=== PATIENT | male | born 1950 | race Two or more races ===

== ENCOUNTER 2019-04-10 22:39 | Emergency (ER) | payer OTHER ==
[~2019-04-10] VITALS: Ht 172.7 cm; Wt 78.9 kg
[~2019-04-10 22:39] MED LIST: AMLO5TAB15 PO; ATEN-60 PO; ATOR20TA50 PO; HYDR25TA4 PO; LISI40TA PO; RANITAB32 PO; TAMS0.4C36 PO
[2019-04-10] MEDS ORDERED: SODIUM CHLORIDE 0.9% 1,000 ML IV ONE (23:15)
[2019-04-10] MEDS ORDERED: ONDANSETRON HCL 4 MG/2 ML VIAL IV ONE (23:15)
[2019-04-10 23:32] LABS: Basophils # (auto) 0.1 uL; Basophils % (auto) 0.4 % (0.0-2.0); Eosinophils # (auto) 0.2 uL; Eosinophils % (auto) 1.4 % (0.0-7.0); Hematocrit 46.6 % (41.0-53.0); Hemoglobin 15.8 g/dL (13.5-17.5); Lymphocytes # (auto) 2.3 uL; Lymphocytes % (auto) 14.6 % (10.0-50.0); Mean Corpuscular Hemoglobin 31.3 pg (28.0-32.0); Mean Corpuscular Hgb Conc. 33.8 g/dL (32.0-36.0); Mean Corpuscular Volume 92.4 fL (80.0-100.0); Monocytes # (auto) 0.8 uL; Monocytes % (auto) 5.3 % (0.0-12.0); Neutrophils # (auto) 12.4 uL; Neutrophils % (auto) 78.3 % (37.0-80.0); Platelet Count (auto) 128 10^3/uL (140-450); Red Blood Cells 5.04 10^6/uL (4.5-5.90); Red Cell Distribution Width 14.9 % (11.8-14.3); White Blood Cell 15.8 10^3/uL (4.4-10.8)
[2019-04-10 23:44] LABS: Amylase 72 U/L (25-115); Lipase 186 U/L (73-393)
[2019-04-10 23:47] LABS: Albumin 4.3 g/dL (3.4-5.0); Anion Gap 10 (5-15); Blood Urea Nitrogen 22 mg/dL (7-18); Calcium 9.2 mg/dL (8.5-10.1); Carbon Dioxide 28 mmol/L (21-32); Chloride 102 mmol/L (98-107); Glucose 91 mg/dL (74-106); Potassium 3.4 mmol/L (3.5-5.1); Sodium 140 mmol/L (136-145)
[2019-04-10 23:49] LABS: Alanine Aminotransferase 55 U/L (16-61); Aspartate Aminotransferase 37 U/L (15-37); BUN/Creatinine Ratio 17.9; GFR African American 75 mL/min; GFR Non-African American 62 mL/min
[2019-04-10 23:50] LABS: Lactic Acid w/Reflex 4.1 mmol/L (0.4-2.0)
[2019-04-10 23:53] LABS: Alkaline Phosphatase 105 U/L (45-117); Bilirubin, Total 0.4 mg/dL (0.2-1.0); Total Protein 8.9 g/dL (6.4-8.2)
[2019-04-10 23:57] LABS: INR 7.69 (0.9-1.15)
[2019-04-11] MEDS ORDERED: SODIUM CHLORIDE 0.9% 2,350 ML IV ONE
[2019-04-11] MEDS ORDERED: PIPERACILLIN-TAZOB 3.375GM 100 ML IV ONE (00:15)
[2019-04-11 01:07] LABS: Urine Bacteria FEW /hpf (None Seen); Urine Blood TRACE /uL (Negative); Urine Hyaline Cast FEW /lpf (0 - 2); Urine Specific Gravity 1.017 (1.001-1.035); Urine WBC <1 /hpf (0 - 3)
[2019-04-11] MEDS ORDERED: VANCOMYCIN 1GM/250ML 250 ML IV ONE (01:15)
[2019-04-11 03:00] VITALS: BP 126/66
== END 2019-04-11 04:03 | disposition home or self-care (01) ==
LOC: EDBD 22:39 → ER 22:42
DX: K29.00 Acute gastritis without bleeding (principal); D72.829 Elevated white blood cell count, unspecified; R11.2 Nausea with vomiting, unspecified; D68.9 Coagulation defect, unspecified; D69.6 Thrombocytopenia, unspecified; E11.9 Type 2 diabetes mellitus without complications; I10 Essential (primary) hypertension; I25.2 Old myocardial infarction; Z79.899 Other long term (current) drug therapy
CPT/HCPCS: 36415; 51701; 71045; 74176; 80053; 81001; 82150; 83605; 83690; 84484; 85025; 85610; 85730; 87040; 93005; 94761; 96361; 96365; 96366; 96368; 96375; 99284; J2405; J2543; J3370; J7030; J7050

== ENCOUNTER → 2019-10-03 | Emergency (ER) | payer OTHER ==
[~2019-10-03] VITALS: Ht 182.9 cm; Wt 99.8 kg
[~2019-10-03] MED LIST changes: +ONDANSETRON HCL 4 MG/2 ML VIAL IV ONE
[2019-10-03 02:02] LABS: Basophils # (auto) 0.1 10 ^3/uL (0-0.2); Basophils % (auto) 0.4 % (0.0-2.0); Eosinophils # (auto) 0.1 10 ^3/uL (0-0.8); Hematocrit 49.5 % (41.0-53.0); Hemoglobin 16.3 g/dL (13.5-17.5); Lymphocytes % (auto) 13.5 % (10.0-50.0); Mean Corpuscular Hemoglobin 30.1 pg (28.0-32.0); Mean Corpuscular Hgb Conc. 32.9 g/dL (32.0-36.0); Mean Corpuscular Volume 91.4 fL (80.0-100.0); Monocytes % (auto) 6.7 % (0.0-12.0); Neutrophils # (auto) 11.8 10 ^3/uL (1.6-8.6); Neutrophils % (auto) 78.4 % (37.0-80.0); Nucleated Red Blood Cells % 0.2 %; Platelet Count (auto) 70 10^3/uL (140-450); Red Blood Cells 5.41 10^6/uL (4.5-5.90); Red Cell Distribution Width 14.8 % (11.8-14.3)
[2019-10-03 02:19] LABS: Alanine Aminotransferase 56 U/L (16-61); Albumin 3.8 g/dL (3.4-5.0); Anion Gap 5 (5-15); Aspartate Aminotransferase 31 U/L (15-37); BUN/Creatinine Ratio 21.3; Blood Urea Nitrogen 26 mg/dL (7-18); Calcium 9.4 mg/dL (8.5-10.1); Carbon Dioxide 30 mmol/L (21-32); Chloride 100 mmol/L (98-107); GFR African American 76 mL/min; GFR Non-African American 62 mL/min; Glucose 158 mg/dL (74-106); Potassium 3.7 mmol/L (3.5-5.1); Sodium 135 mmol/L (136-145)
[2019-10-03 02:24] LABS: Alkaline Phosphatase 94 U/L (45-117); Bilirubin, Total 0.5 mg/dL (0.2-1.0); Total Protein 8.1 g/dL (6.4-8.2)
[2019-10-03 04:07] LABS: Urine Bacteria NONE SEEN /hpf (None Seen); Urine Blood TRACE /uL (Negative); Urine Specific Gravity 1.017 (1.001-1.035); Urine WBC <1 /hpf (0 - 3)
[2019-10-03 05:00] VITALS: BP 151/76
== END | disposition home or self-care (01) ==
LOC: EDUNIT# 00:54 → EDBD 01:10 → ER 01:11
DX: E11.649 Type 2 diabetes mellitus with hypoglycemia without coma (principal); I10 Essential (primary) hypertension; I25.2 Old myocardial infarction; Z79.4 Long term (current) use of insulin
CPT/HCPCS: 36415; 71045; 80053; 81001; 82962; 84484; 85025; 93005; 96374; 99285; J2405

== ENCOUNTER 2019-11-27 11:58 | Inpatient (IN) | payer OTHER ==
[~2019-11-27] VITALS: Ht 167.6 cm; Wt 78.8 kg
[~2019-11-27 11:58] MED LIST changes: -ONDANSETRON HCL 4 MG/2 ML VIAL IV ONE
[2019-11-27] MEDS ORDERED: SODIUM CHLORIDE 0.9% 1,000 ML IV ONE (12:06)
[2019-11-27] MEDS ORDERED: SODIUM CHLORIDE 0.9% 1,000 ML IVB ONE (12:06)
[2019-11-27] MEDS ORDERED: ONDANSETRON HCL 4 MG/2 ML VIAL IV ONE (12:15)
[2019-11-27] MEDS ORDERED: MORPHINE SULFATE 4 MG/ML SYR/VIAL IV ONE (12:15)
[2019-11-27] MEDS ORDERED: ACETAMINOPHEN 650 mg PER 20 mL UD PO ONE (12:30)
[2019-11-27 13:09] LABS: Basophils # (auto) 0 10 ^3/uL (0-0.2); Basophils % (auto) 0.3 % (0.0-2.0); Eosinophils # (auto) 0.1 10 ^3/uL (0-0.8); Eosinophils % (auto) 0.5 % (0.0-7.0); Hematocrit 48.4 % (41.0-53.0); Hemoglobin 15.9 g/dL (13.5-17.5); Lymphocytes # (auto) 0.5 10 ^3/uL (0.4-5.4); Lymphocytes % (auto) 3.2 % (10.0-50.0); Mean Corpuscular Hemoglobin 30.7 pg (28.0-32.0); Mean Corpuscular Hgb Conc. 32.8 g/dL (32.0-36.0); Mean Corpuscular Volume 93.5 fL (80.0-100.0); Monocytes # (auto) 0.5 10 ^3/uL (0-1.3); Monocytes % (auto) 3.4 % (0.0-12.0); Neutrophils # (auto) 13.3 10 ^3/uL (1.6-8.6); Neutrophils % (auto) 92.6 % (37.0-80.0); Nucleated Red Blood Cells % 0.1 %; Platelet Count (auto) 84 10^3/uL (140-450); Red Blood Cells 5.18 10^6/uL (4.5-5.90); Red Cell Distribution Width 15.2 % (11.8-14.3); White Blood Cell 14.4 10^3/uL (4.4-10.8)
[2019-11-27 13:26] LABS: Albumin 3.3 g/dL (3.4-5.0); BUN/Creatinine Ratio 29.3; Calcium 8.5 mg/dL (8.5-10.1); Potassium 4.3 mmol/L (3.5-5.1)
[2019-11-27 13:30] LABS: Bilirubin, Total 1.2 mg/dL (0.2-1.0); Total Protein 7.2 g/dL (6.4-8.2)
[2019-11-27] MEDS ORDERED: cefTRIAXone 1GM/50ML D5W 50 ML IV ONE (14:30)
[2019-11-27] MEDS ORDERED: hydrALAZINE HCL 20 MG/ML VL IV PRN (15:00)
[2019-11-27] MEDS ORDERED: FUROSEMIDE 40 MG/4 ML VIAL IV ONE (15:00)
[2019-11-27] MEDS ORDERED: LISINOPRIL 20 MG TAB PO ONE (15:00)
[2019-11-27] MEDS ORDERED: ALUM & MAG HYDROX-SIMETH LIQ(MAALOX) 30 ML PO PRN (15:15)
[2019-11-27] MEDS ORDERED: ONDANSETRON HCL 4 MG/2 ML VIAL IV PRN (15:15)
[2019-11-27] MEDS ORDERED: LORazepam 0.5 MG TAB PO PRN (15:15)
[2019-11-27] MEDS ORDERED: NITROGLYCERIN 0.4 MG SL TAB SL PRN (15:15)
[2019-11-27] MEDS ORDERED: DOCUSATE SOD 100 MG CAP PO PRN (15:15)
[2019-11-27] MEDS ORDERED: MORPHINE SULF INJ 2 MG/ML SYRINGE 1ML IV PRN ×2 (15:15)
[2019-11-27] MEDS ORDERED: HYDROcodone-ACET 5/325MG TAB PO PRN (15:15)
[2019-11-27] MEDS ORDERED: DEXTROSE (50%) 50ML SYRG IV PRN (15:15)
[2019-11-27 15:17] LABS: Urine Bacteria NONE SEEN /hpf (None Seen); Urine Blood 1+ /uL (Negative); Urine Specific Gravity 1.017 (1.001-1.035); Urine WBC <1 /hpf (0 - 3)
[2019-11-27 15:30] LABS: Alcohol, Urine < 3.0 mg/dL (0-10); Amphetamine Screen, Urine NEGATIVE (NEGATIVE); Barbiturate Scree,Urine NEGATIVE (NEGATIVE); Benzodiazephine Screen, Urine NEGATIVE (NEGATIVE); Cannabinoid Screen, Urine NEGATIVE (NEGATIVE); Cocaine Screen, Urine NEGATIVE (NEGATIVE); Opiate Scree,Urine NEGATIVE (NEGATIVE); Phencyclidine Screen, Urine NEGATIVE (NEGATIVE)
[2019-11-27 15:38] LABS: INR 1.22 (0.9-1.15); Partial Thromboplastin Time 27.6 sec (23.64-32.05)
[2019-11-27] MEDS: AMPICILLIN & SULBACTAM SODIUM 3 GM in SODIUM CHL 0.9% 100 ML IV SCH ×2 (16:00→21:08)
[2019-11-27] MEDS: SODIUM CHLORIDE 0.9% 1,000 ML IV SCH (16:08)
[2019-11-27 17:00] VITALS: BP 148/91
--- NOTE | 2019-11-27 17:00 | NUR ---
Telemetry admit from [facility] admitted to Telemetry unit after SBAR received. Patient oriented to BONI CHIU, RN primary RN, unit, room, bed, and unit policies regarding patient care and visiting hours. Patient now on continuous telemetry monitoring, tele box # 19 and telemetry reading on arrival to unit is SR. Patient weighed by bedscale and encouraged to call if they need something. All questions and concerns addressed, patient verbalized understanding.
[2019-11-27 18:00] LABS: Cholesterol 127 mg/dL (< 200)
[2019-11-27] MEDS: ACCU-CHEK COMFORT CURVE STRIP VI SCH (18:00)
[2019-11-27 18:02] LABS: HDL Cholesterol 37 mg/dL (40-59); LDL Cholesterol 83 mg/dL (< 100); Triglycerides 90 mg/dL (< 150)
[2019-11-27] MEDS: TAMSULOSIN HYDROCHLORIDE 0.4 MG CAP PO SCH (18:49)
[2019-11-27] MEDS: FUROSEMIDE 40 MG/4 ML VIAL IV SCH (18:58)
[2019-11-27] MEDS ORDERED: FLUT500M2 INH (19:06)
[2019-11-27] MEDS ORDERED: WARF2.5T PO (19:15)
[2019-11-27] MEDS ORDERED: PANT40TA2 PO (19:15)
[2019-11-27] MEDS ORDERED: SUCR1TAB PO (19:15)
[2019-11-27] MEDS ORDERED: ASPI-404 PO (19:15)
[2019-11-27] MEDS: InsuLIN REG 1unit/0.01ml Soln (100units/ml) SC SCH (19:16)
--- NOTE | 2019-11-27 19:47 | NUR ---
Covid Patient testing negative for covid. Patient transferred to room 233 with EDWARD Vilchis at this time after Report given.
--- NOTE | 2019-11-27 19:49 | NUR ---
Received patient Received patient after receiving report from EDWARD Blackwood. Patient now in room awake and alert with no S/S of distress/SOB or pain. Call light within reach, bed in lowest position x2 side rails, HOB low fowlers Instructed on POC and to call for assist PRN, will continue to monitor for changes Q1hr and PRN.
[2019-11-27] MEDS: IPRATROPIUM BROM 0.5 MG/2.5ML INH SOL NEB SCH ×2 (19:54→22:17)
[2019-11-27 19:56] VITALS: BP 152/76
[2019-11-27] MEDS ORDERED: WARFARIN SODIUM 2 MG TAB PO ONE (20:15)
--- NOTE | 2019-11-27 20:35 | NUR ---
CT postponed Call from radiology, postponed CT scan for tomorrow, unable to do it at this time.
--- NOTE | 2019-11-27 20:40 | NUR ---
Called pharmacy Looked in patient cassette for scheduled one time dose of coumadin, called pharmacy to be sent up.
[2019-11-27 21:30] VITALS: BP 120/67
--- NOTE | 2019-11-27 21:49 | NUR ---
Medication from pharmacy Received medication from pharmacy, will administer.
[2019-11-27] MEDS: FAMOTIDINE 20 MG TAB PO SCH (22:23)
[2019-11-28] MEDS: InsuLIN REG 1unit/0.01ml Soln (100units/ml) SC SCH ×4 (00:16→18:38)
--- NOTE | 2019-11-28 00:16 | NUR ---
Elevated BS, Hospitalist paged Scheduled accu check reading of 402, rechecked in different finger and different hand per protocol with a reading of 406. Administered 15 units of insulin and called Hospitalist to inform of critical reading per protocol. No new orders at this time. Will continue to monitor.
[2019-11-28] MEDS: ACCU-CHEK COMFORT CURVE STRIP VI SCH ×4 (00:18→18:28)
--- NOTE | 2019-11-28 01:58 | NUR ---
Lab results Lab results of gram positive cocci in chains. Hospitalist paged.
[2019-11-28] MEDS: IPRATROPIUM BROM 0.5 MG/2.5ML INH SOL NEB SCH ×5 (02:17→18:06)
--- NOTE | 2019-11-28 02:26 | NUR ---
Hospitalist Call back from Hospitalist, informed him of Gram positive cocci in chains and patient currently on ampicilin. New order received, read back, and verified of Vancomycin per pharmacy protocol. Will continue to monitor.
[2019-11-28] MEDS: AMPICILLIN & SULBACTAM SODIUM 3 GM in SODIUM CHL 0.9% 100 ML IV SCH ×2 (02:46→11:01)
[2019-11-28 04:30] VITALS: BP 123/64
[2019-11-28] MEDS: FUROSEMIDE 40 MG/4 ML VIAL IV SCH ×2 (05:38→18:27)
[2019-11-28 06:11] LABS: Basophils # (auto) 0 10 ^3/uL (0-0.2); Eosinophils # (auto) 0 10 ^3/uL (0-0.8); Eosinophils % (auto) 0.2 % (0.0-7.0); Lymphocytes # (auto) 0.5 10 ^3/uL (0.4-5.4)
[2019-11-28 06:13] LABS: Basophils % (auto) 0.4 % (0.0-2.0); Hematocrit 46.3 % (41.0-53.0); Hemoglobin 15.3 g/dL (13.5-17.5); Lymphocytes % (auto) 5.7 % (10.0-50.0); Mean Corpuscular Hemoglobin 31.2 pg (28.0-32.0); Mean Corpuscular Hgb Conc. 33.2 g/dL (32.0-36.0); Monocytes # (auto) 0.6 10 ^3/uL (0-1.3); Monocytes % (auto) 5.8 % (0.0-12.0); Neutrophils # (auto) 8.5 10 ^3/uL (1.6-8.6); Neutrophils % (auto) 87.9 % (37.0-80.0); Nucleated Red Blood Cells % 0.1 %; Platelet Count (auto) 63 10^3/uL (140-450); Red Blood Cells 4.92 10^6/uL (4.5-5.90); Red Cell Distribution Width 15.4 % (11.8-14.3); White Blood Cell 9.6 10^3/uL (4.4-10.8)
[2019-11-28 06:18] LABS: INR 1.35 (0.9-1.15); Partial Thromboplastin Time 27.3 sec (23.64-32.05)
[2019-11-28 06:22] LABS: Potassium 3.9 mmol/L (3.5-5.1)
[2019-11-28 06:43] LABS: Albumin 2.9 g/dL (3.4-5.0); BUN/Creatinine Ratio 25.9; Calcium 8.2 mg/dL (8.5-10.1); Magnesium 2.1 mg/dL (1.6-2.6); Phosphorus 2.8 mg/dL (2.5-4.90); Total Protein 6.5 g/dL (6.4-8.2)
[2019-11-28] MEDS: SODIUM CHLORIDE 0.9% 1,000 ML IV SCH (07:42)
--- NOTE | 2019-11-28 08:00 | NUR ---
OPENING NOTE ASSUMED CARE OF PATIENT. NO S/S OF DISTRESS, SOB, OR PAIN. PT DANGLING FEET ON SIDE OF BED EATING BREAKFAST. POC DISCUSSED WITH PT. ALL NEEDS MET AT THIS TIME. BED IN LOWEST POSITION, CALL LIGHT WITHIN REACH. WILL CONTINUE TO MONITOR.
[2019-11-28 09:00] VITALS: BP 112/82
--- NOTE | 2019-11-28 09:30 | NUR ---
patient taken down to radiology
[2019-11-28] MEDS ORDERED: LISINOPRIL 20 MG TAB PO SCH (10:00)
[2019-11-28] MEDS ORDERED: ASPirin 81 mg TAB PO SCH (10:00)
[2019-11-28] MEDS ORDERED: METOPROLOL SUCCINATE XL 50 MG TAB PO SCH (10:00)
[2019-11-28] MEDS ORDERED: ATORVASTATIN 20 MG TAB PO SCH (10:00)
--- NOTE | 2019-11-28 10:15 | NUR ---
patient back from radiology
[2019-11-28] MEDS: FAMOTIDINE 20 MG TAB PO SCH (10:56)
--- NOTE | 2019-11-28 12:06 | NUR ---
Dr. Robert Kaufman at bedside Discussing plan of care with patient and this RN. New orders received. patient to transfer to [facility]. Patient verbalized understanding. Bed in low and locked position, call light within reach. Will continue to monitor Q1 hour and PRN.
[2019-11-28] MEDS ORDERED: VANCOMYCIN 1GM/250ML 250 ML IV ONE (12:15)
[2019-11-28] MEDS ORDERED: VANCOMYCIN PER PHARMACY 0 MG IV SCH (12:15)
[2019-11-28 13:00] VITALS: BP 127/67
--- NOTE | 2019-11-28 14:17 | NUR ---
1415 11/28/19 I faxed transfer order and Notice Regarding Post Stabilization to [facility]-document scanned into [employer]. I faxed today's MD progress notes, transfer summary, xrays, labs, vitals and medication list to [facility].
--- NOTE | 2019-11-28 15:39 | NUR ---
1530 11/28/19 I spoke with [facility] Powder Operator Annalisa regarding the status of the transfer. I let her know that through an jewel bearing facer (patient is amharic speaking only), patient is agreeable to be transferred to [facility]. Per Annalisa she will work on the transfer and will call the nurse's station when a bed becomes available.
[2019-11-28 17:00] VITALS: BP 126/71
[2019-11-28] MEDS ORDERED: PIPERACILLIN-TAZOB 3.375GM 100 ML IV SCH (18:00)
[2019-11-28] MEDS ORDERED: WARFARIN SODIUM 2.5 MG TAB PO ONE (18:15)
--- NOTE | 2019-11-28 18:15 | NUR ---
IV Removed IV removed from left forearm, with clean sterile technique, catheter fully intact. Pressure dressing applied to site. Patient tolerated well. Will continue to monitor Q1 hour and PRN.
[2019-11-28] MEDS: TAMSULOSIN HYDROCHLORIDE 0.4 MG CAP PO SCH (18:27)
--- NOTE | 2019-11-28 19:05 | NUR ---
Closing Note Report given to maintenance supervisor 2nd shift RN. No signs or symptoms of distress noted at this time.
--- NOTE | 2019-11-28 19:20 | NUR ---
Opening Shift Note Assumed care of patient after receiving report from day RN. Patient awake and alert with no S/S of distress/SOB or pain. Call light within reach, bed in lowest position x2 side rails, HOB >30. Instructed on POC and to call for assist PRN, will continue to monitor for changes Q1hr and PRN.
--- NOTE | 2019-11-28 20:07 | NUR ---
Spoke with Kaykay from [facility] at [phone]. Patient to be transfer by [facility] at 21:30 to [facility] to bed 409. Accepting EDWARD Saini [phone], accepting MD Dr. Cheek.
[2019-11-28 20:45] VITALS: BP 114/71
[2019-11-28 21:37] VITALS: BP 123/61
--- NOTE | 2019-11-28 21:47 | NUR ---
Report given to EDWARD Saini at [facility].
--- NOTE | 2019-11-28 22:06 | NUR ---
Patient off unit, transferred by [facility]. ID band removed, Tele box cleaned and sent to monitor techs.
[2019-11-29] MEDS ORDERED: VANCOMYCIN 1GM/250ML 250 ML IV SCH (08:00)
== END 2019-11-28 22:06 | disposition short-term general hospital (02) | DRG 872 ==
LOC: EDBD 11:58 → EDSEX 11:58 → ER 11:58 → TELE-EAST 11:59
PROVIDERS: ADMIT Hospitalist; ATTEND Physician Assistant
DX: A40.9 Streptococcal sepsis, unspecified (principal); E44.0 Moderate protein-calorie malnutrition; I50.82 Biventricular heart failure; E86.0 Dehydration; E11.21 Type 2 diabetes mellitus with diabetic nephropathy; D69.6 Thrombocytopenia, unspecified; I11.0 Hypertensive heart disease with heart failure; I48.91 Unspecified atrial fibrillation; Z20.828 Contact with and (suspected) exposure to other viral communicable diseases; E78.5 Hyperlipidemia, unspecified; N40.0 Benign prostatic hyperplasia without lower urinary tract symptoms; E78.00 Pure hypercholesterolemia, unspecified; I25.10 Atherosclerotic heart disease of native coronary artery without angina pectoris; I25.5 Ischemic cardiomyopathy; I25.2 Old myocardial infarction; Z95.2 Presence of prosthetic heart valve; J44.9 Chronic obstructive pulmonary disease, unspecified; Z68.27 Body mass index [BMI] 27.0-27.9, adult
CPT/HCPCS: 36415; 71045; 74176; 80053; 80061; 80307; 81001; 82728; 82962; 83036; 83605; 83615; 83690; 83735; 84100; 84484; 85025; 85610; 85730; 87040; 87077; 87086; 87186; 87804; 87880; 93005; 94640; 96361; 96365; 96375; 99291; G0378; J0696; J1815; J2405; J2543

== ENCOUNTER 2020-09-11 22:33 | Emergency (ER) | payer OTHER, MEDICAID ==
[~2020-09-11] VITALS: Ht 167.6 cm; Wt 81.6 kg
[~2020-09-11 22:33] MED LIST changes: +AMLO-489 PO; -AMLO5TAB15 PO; +ASPI-543 PO; +FLUT500M2 INH; -LISI40TA PO; +LISI40TA11 PO; +PANT40TA2 PO; +SUCR1TAB PO; +WARF2.5T PO
[2020-09-11] MEDS ORDERED: IPRATROPIUM BROM 0.5 MG/2.5ML INH SOL ONE (23:13)
[2020-09-11] MEDS ORDERED: ALBUTEROL SULF 2.5 MG/0.5ML(0.5%) NEB SOLN ONE (23:13)
[2020-09-11] MEDS ORDERED: SODIUM CHLORIDE 0.9% 500 ML IV ONE (23:15)
[2020-09-11] MEDS ORDERED: InsuLIN REG 1unit/0.01ml Soln (100units/ml) IV ONE (23:15)
[2020-09-11 23:28] LABS: Basophils # (auto) 0 10 ^3/uL (0-0.2); Eosinophils # (auto) 0 10 ^3/uL (0-0.8); Hematocrit 37.9 % (41.0-53.0); Hemoglobin 12.2 g/dL (13.5-17.5); Lymphocytes # (auto) 0.6 10 ^3/uL (0.4-5.4); Lymphocytes % (auto) 4.3 % (10.0-50.0); Mean Corpuscular Hemoglobin 29.9 pg (28.0-32.0); Mean Corpuscular Hgb Conc. 32.2 g/dL (32.0-36.0); Monocytes # (auto) 0.9 10 ^3/uL (0-1.3); Monocytes % (auto) 6.2 % (0.0-12.0); Neutrophils # (auto) 12.9 10 ^3/uL (1.6-8.6); Neutrophils % (auto) 89.5 % (37.0-80.0); Nucleated Red Blood Cells % 0.1 %; Platelet Count (auto) 112 10^3/uL (140-450); Red Blood Cells 4.08 10^6/uL (4.5-5.90); Red Cell Distribution Width 18.2 % (11.8-14.3); White Blood Cell 14.4 10^3/uL (4.4-10.8)
[2020-09-11] MEDS ORDERED: IPRATROPIUM BROM 0.5 MG/2.5ML INH SOL NEB ONE (23:30)
[2020-09-11] MEDS ORDERED: ALBUTEROL SULF 2.5 MG/0.5ML(0.5%) NEB SOLN NEB ONE (23:30)
[2020-09-11 23:49] LABS: INR 1.44 (0.9-1.15); Partial Thromboplastin Time 39.4 sec (23.0-31.2)
[2020-09-11 23:52] LABS: Albumin 3.4 g/dL (3.4-5.0); Calcium 7.7 mg/dL (8.5-10.1); Potassium 4.4 mmol/L (3.5-5.1)
[2020-09-11 23:54] LABS: Bilirubin, Total 0.7 mg/dL (0.2-1.0); Total Protein 6.9 g/dL (6.4-8.2)
[2020-09-11 23:55] LABS: Lactic Acid w/Reflex 2.1 mmol/L (0.4-2.0)
[2020-09-11 23:57] LABS: BUN/Creatinine Ratio 31.4
[2020-09-12] MEDS ORDERED: ALBUTEROL SULF 2.5 MG/0.5ML(0.5%) NEB SOLN NEB ONE (01:15)
[2020-09-12 01:52] LABS: Urine Bacteria NONE SEEN /hpf (None Seen); Urine Blood Negative /uL (Negative); Urine Specific Gravity 1.023 (1.001-1.035); Urine WBC <1 /hpf (0 - 3)
[2020-09-12] MEDS ORDERED: InsuLIN REG 1unit/0.01ml Soln (100units/ml) SC ONE (02:45)
[2020-09-12 04:53] VITALS: BP 150/75
== END 2020-09-12 05:10 | disposition home or self-care (01) ==
LOC: EDBD 22:33 → ER 22:33
DX: E11.65 Type 2 diabetes mellitus with hyperglycemia (principal); I11.0 Hypertensive heart disease with heart failure; I50.9 Heart failure, unspecified; Z79.899 Other long term (current) drug therapy; Z20.822 Contact with and (suspected) exposure to COVID-19
CPT/HCPCS: 36415; 36600; 71045; 80053; 81001; 82010; 82805; 82962; 83605; 83880; 85025; 85610; 85730; 87040; 87426; 94640; 96361; 96372; 96374; 99285; C9803; J1815; J7644; U0003

== ENCOUNTER 2020-11-07 01:57 | Emergency (ER) | payer OTHER, MEDICAID ==
[~2020-11-07] VITALS: Ht 167.6 cm; Wt 77.1 kg
[~2020-11-07 01:57] MED LIST changes: +ALBU108A5 INH; +AMLO-496 PO; +DABI150C5 PO; +FURO40TA4 PO; +INSREG3; +INSUINJ2 SC; +IPR002IS NEB; +MONT10TA42 PO; +PANT40T PO; +[UNRECOGNIZED DRUG - CODE] IV
[2020-11-07 02:50] LABS: Basophils # (auto) 0.1 10 ^3/uL (0-0.2); Basophils % (auto) 0.3 % (0.0-2.0); Eosinophils # (auto) 0.2 10 ^3/uL (0-0.8); Eosinophils % (auto) 1.3 % (0.0-7.0); Hematocrit 36.9 % (41.0-53.0); Hemoglobin 12.1 g/dL (13.5-17.5); Lymphocytes # (auto) 1.3 10 ^3/uL (0.4-5.4); Lymphocytes % (auto) 7.4 % (10.0-50.0); Mean Corpuscular Hemoglobin 27.7 pg (28.0-32.0); Mean Corpuscular Hgb Conc. 32.7 g/dL (32.0-36.0); Mean Corpuscular Volume 84.6 fL (80.0-100.0); Monocytes # (auto) 0.9 10 ^3/uL (0-1.3); Monocytes % (auto) 5.3 % (0.0-12.0); Neutrophils # (auto) 14.9 10 ^3/uL (1.6-8.6); Neutrophils % (auto) 85.7 % (37.0-80.0); Nucleated Red Blood Cells % 0.1 %; Platelet Count (auto) 141 10^3/uL (140-450); Red Blood Cells 4.36 10^6/uL (4.5-5.90); Red Cell Distribution Width 17.5 % (11.8-14.3); White Blood Cell 17.4 10^3/uL (4.4-10.8)
[2020-11-07 03:07] LABS: Albumin 3.4 g/dL (3.4-5.0); BUN/Creatinine Ratio 29.9; Calcium 8.5 mg/dL (8.5-10.1); INR 1.34 (0.9-1.15); Magnesium 1.7 mg/dL (1.6-2.6); Partial Thromboplastin Time 36.1 sec (23.0-31.2); Potassium 3.4 mmol/L (3.5-5.1)
[2020-11-07 03:12] LABS: Bilirubin, Total 0.8 mg/dL (0.2-1.0)
[2020-11-07] MEDS ORDERED: SODIUM CHLORIDE 0.9% 500 ML IV ONE (05:30)
[2020-11-07] MEDS ORDERED: AZITHROMYCIN 500MG/ 250ML 250 ML IV ONE (05:45)
[2020-11-07] MEDS ORDERED: ASPirin 325 MG TAB PO ONE (05:45)
[2020-11-07] MEDS ORDERED: cefTRIAXone 1GM/50ML D5W 50 ML IV ONE (05:45)
[2020-11-07 11:10] VITALS: BP 100/79
== END 2020-11-07 11:36 | disposition short-term general hospital (02) ==
LOC: ER 01:57 → EDBD 01:57 → EDSEX 01:57 → ER 11:36
DX: J18.9 Pneumonia, unspecified organism (principal); E87.2 Acidosis; I10 Essential (primary) hypertension; E11.9 Type 2 diabetes mellitus without complications; I25.2 Old myocardial infarction; I25.10 Atherosclerotic heart disease of native coronary artery without angina pectoris; J45.909 Unspecified asthma, uncomplicated; Z20.822 Contact with and (suspected) exposure to COVID-19
CPT/HCPCS: 36415; 71045; 80053; 83605; 83735; 83880; 84484; 85025; 85379; 85610; 85730; 87040; 87426; 93005; 96361; 96365; 96366; 96367; 99285; J0456; J0696; J7030; J7040

== ENCOUNTER 2020-11-11 17:38 | Emergency (ER) | payer MEDICAID, OTHER ==
[~2020-11-11] VITALS: Ht 172.7 cm; Wt 77.1 kg
[2020-11-11 19:27] LABS: Basophils # (auto) 0 10 ^3/uL (0-0.2); Basophils % (auto) 0.3 % (0.0-2.0); Eosinophils # (auto) 0.2 10 ^3/uL (0-0.8); Eosinophils % (auto) 1.3 % (0.0-7.0); Hematocrit 31.8 % (41.0-53.0); Hemoglobin 10.6 g/dL (13.5-17.5); Lymphocytes # (auto) 1.3 10 ^3/uL (0.4-5.4); Lymphocytes % (auto) 10.5 % (10.0-50.0); Mean Corpuscular Hemoglobin 28.3 pg (28.0-32.0); Mean Corpuscular Hgb Conc. 33.3 g/dL (32.0-36.0); Mean Corpuscular Volume 84.9 fL (80.0-100.0); Monocytes # (auto) 0.8 10 ^3/uL (0-1.3); Monocytes % (auto) 6.4 % (0.0-12.0); Neutrophils % (auto) 81.5 % (37.0-80.0); Platelet Count (auto) 108 10^3/uL (140-450); Red Blood Cells 3.75 10^6/uL (4.5-5.90); Red Cell Distribution Width 17.2 % (11.8-14.3); White Blood Cell 12.2 10^3/uL (4.4-10.8)
[2020-11-11 19:35] LABS: Albumin 4.1 g/dL (3.4-5.0); Calcium 9.1 mg/dL (8.5-10.1); Magnesium 1.7 mg/dL (1.6-2.6); Potassium 3.9 mmol/L (3.5-5.1)
[2020-11-11 19:37] LABS: BUN/Creatinine Ratio 24.8
[2020-11-11 19:41] LABS: Bilirubin, Total 1.5 mg/dL (0.2-1.0); Total Protein 7.3 g/dL (6.4-8.2)
[2020-11-11] MEDS ORDERED: FUROSEMIDE 100 MG/10ML VIAL IV ONE (20:00)
[2020-11-11] MEDS ORDERED: InsuLIN REG 1unit/0.01ml Soln (100units/ml) IV ONE (20:00)
[2020-11-12 09:48] VITALS: BP 158/65
== END 2020-11-12 10:06 | disposition short-term general hospital (02) ==
LOC: EDBD 17:38 → ER 17:44
DX: I50.23 Acute on chronic systolic (congestive) heart failure (principal); I11.0 Hypertensive heart disease with heart failure; R09.02 Hypoxemia; E11.65 Type 2 diabetes mellitus with hyperglycemia; I10 Essential (primary) hypertension; I25.10 Atherosclerotic heart disease of native coronary artery without angina pectoris; I25.2 Old myocardial infarction; J45.909 Unspecified asthma, uncomplicated; Z79.4 Long term (current) use of insulin; Z79.82 Long term (current) use of aspirin; Z79.01 Long term (current) use of anticoagulants; Z79.899 Other long term (current) drug therapy; Z20.822 Contact with and (suspected) exposure to COVID-19
CPT/HCPCS: 36415; 71045; 80053; 82962; 83735; 83880; 84484; 85025; 87426; 93005; 96374; 96375; 99285; J1815; J1940

== ENCOUNTER 2020-11-22 23:02 | Emergency (ER) | payer OTHER, MEDICAID ==
[~2020-11-22] VITALS: Ht 167.6 cm; Wt 72.6 kg
[~2020-11-22 23:02] MED LIST changes: +MONT-8 PO; -MONT10TA42 PO
[2020-11-23] MEDS ORDERED: ONDANSETRON HCL 4 MG/2 ML VIAL IV ONE (01:00)
[2020-11-23 02:34] LABS: Basophils # (auto) 0 10 ^3/uL (0-0.2); Basophils % (auto) 0.1 % (0.0-2.0); Eosinophils # (auto) 0.2 10 ^3/uL (0-0.8); Eosinophils % (auto) 1.4 % (0.0-7.0); Hematocrit 37.4 % (41.0-53.0); Lymphocytes # (auto) 0.8 10 ^3/uL (0.4-5.4); Lymphocytes % (auto) 5.2 % (10.0-50.0); Mean Corpuscular Hemoglobin 27.1 pg (28.0-32.0); Mean Corpuscular Hgb Conc. 32.1 g/dL (32.0-36.0); Mean Corpuscular Volume 84.5 fL (80.0-100.0); Monocytes # (auto) 0.8 10 ^3/uL (0-1.3); Monocytes % (auto) 5.3 % (0.0-12.0); Neutrophils # (auto) 13.6 10 ^3/uL (1.6-8.6); Red Blood Cells 4.42 10^6/uL (4.5-5.90); White Blood Cell 15.5 10^3/uL (4.4-10.8)
[2020-11-23 02:50] LABS: INR 1.47 (0.9-1.15)
[2020-11-23 02:54] LABS: Albumin 3.5 g/dL (3.4-5.0); BUN/Creatinine Ratio 25.2; Calcium 8.6 mg/dL (8.5-10.1); Magnesium 1.7 mg/dL (1.6-2.6); Potassium 4.4 mmol/L (3.5-5.1)
[2020-11-23 02:59] LABS: Bilirubin, Total 0.9 mg/dL (0.2-1.0); Total Protein 7.2 g/dL (6.4-8.2)
[2020-11-23] MEDS ORDERED: IOHEXOL 300 MG/ML 100ML BOTTLE IJ ONE (03:32)
[2020-11-23 04:00] VITALS: BP 132/72
== END 2020-11-23 06:57 | disposition home or self-care (01) ==
LOC: EDBD 23:02 → ER 23:02
DX: A05.9 Bacterial foodborne intoxication, unspecified (principal); R11.2 Nausea with vomiting, unspecified; I11.0 Hypertensive heart disease with heart failure; I50.9 Heart failure, unspecified; I25.10 Atherosclerotic heart disease of native coronary artery without angina pectoris; J45.909 Unspecified asthma, uncomplicated; I25.2 Old myocardial infarction; E11.9 Type 2 diabetes mellitus without complications; Z79.2 Long term (current) use of antibiotics; Z79.01 Long term (current) use of anticoagulants; Z79.82 Long term (current) use of aspirin; Z79.899 Other long term (current) drug therapy
CPT/HCPCS: 36415; 71045; 74177; 80053; 83605; 83690; 83735; 83880; 84484; 85025; 85610; 93005; 96374; 99285; J2405; Q9967

== ENCOUNTER 2021-07-22 09:17 | Inpatient (IN) | payer OTHER, MEDICAID ==
[~2021-07-22] VITALS: Ht 167.6 cm; Wt 66.0 kg
[2021-07-22] MEDS: DABIGATRAN 75 MG CAP PO SCH (00:28)
[2021-07-22 10:18] LABS: Albumin 2.5 g/dL (3.4-5.0); Calcium 8.7 mg/dL (8.5-10.1); Potassium 3.8 mmol/L (3.5-5.1)
[2021-07-22 10:22] LABS: BUN/Creatinine Ratio 19.2; Bilirubin, Total 1.1 mg/dL (0.2-1.0); Lactic Acid w/Reflex 8.4 mmol/L (0.4-2.0)
[2021-07-22 10:38] LABS: Basophils # (auto) 0.1 10 ^3/uL (0-0.2)
[2021-07-22 10:42] LABS: Basophils % (auto) 0.6 % (0.0-2.0); Eosinophils # (auto) 0.1 10 ^3/uL (0-0.8); Eosinophils % (auto) 0.7 % (0.0-7.0); Hematocrit 27.8 % (41.0-53.0); Hemoglobin 8.6 g/dL (13.5-17.5); Lymphocytes # (auto) 2.3 10 ^3/uL (0.4-5.4); Lymphocytes % (auto) 12.8 % (10.0-50.0); Mean Corpuscular Hemoglobin 24.6 pg (28.0-32.0); Mean Corpuscular Volume 79.5 fL (80.0-100.0); Monocytes # (auto) 0.9 10 ^3/uL (0-1.3); Monocytes % (auto) 4.8 % (0.0-12.0); Neutrophils # (auto) 14.4 10 ^3/uL (1.6-8.6); Neutrophils % (auto) 81.1 % (37.0-80.0); Red Cell Distribution Width 19.2 % (11.8-14.3); White Blood Cell 17.8 10^3/uL (4.4-10.8)
[2021-07-22] MEDS ORDERED: DexAMETHasone SOD PHOS 10MG/1ML VIAL INJ IV ONE (11:00)
[2021-07-22] MEDS ORDERED: ASPirin 81 mg TAB PO ONE (11:00)
[2021-07-22] MEDS ORDERED: FUROSEMIDE 20 MG TAB PO ONE (11:00)
[2021-07-22 12:17] VITALS: BP 150/87
[2021-07-22 14:00] VITALS: BP 161/93
[2021-07-22] MEDS ORDERED: MORPHINE SULFATE INJECTION 2 MG/ML SYRG IV PRN (15:15)
[2021-07-22] MEDS ORDERED: NITROGLYCERIN 0.4 MG SL TAB SL PRN (15:15)
[2021-07-22] MEDS ORDERED: FUROSEMIDE 100 MG/10ML VIAL IV ONE (15:15)
[2021-07-22 15:39] LABS: Urine Bacteria NONE SEEN /hpf (None Seen); Urine Blood TRACE /uL (Negative); Urine Specific Gravity 1.015 (1.001-1.035); Urine WBC <1 /hpf (0 - 3)
[2021-07-22 16:20] VITALS: BP 153/82
[2021-07-22] MEDS: cefTRIAXone 1GM/50ML D5W 50 ML IV SCH (16:31)
[2021-07-22] MEDS ORDERED: AMIODARONE HCL 150 MG in D5W 5% 100 ML IV ONE (16:45)
[2021-07-22 16:49] LABS: INR 1.41 (0.9-1.15); Partial Thromboplastin Time 37.3 sec (23.6-33.0)
[2021-07-22] MEDS ORDERED: AMIODARONE 450mg/250ml AE 250 ML IV SCH (17:00)
[2021-07-22] MEDS ORDERED: LORazepam 2MG/ML-1ML VIAL IV PRN (18:00)
[2021-07-22] MEDS: AZITHROMYCIN 500MG/ 250ML 250 ML IV SCH (18:12)
[2021-07-22 18:40] VITALS: BP 150/93
[2021-07-22 18:41] LABS: Amphetamine Screen, Urine NEGATIVE (NEGATIVE); Barbiturate Scree,Urine NEGATIVE (NEGATIVE); Benzodiazephine Screen, Urine NEGATIVE (NEGATIVE); Cannabinoid Screen, Urine NEGATIVE (NEGATIVE); Cocaine Screen, Urine NEGATIVE (NEGATIVE); Opiate Scree,Urine NEGATIVE (NEGATIVE); Phencyclidine Screen, Urine NEGATIVE (NEGATIVE)
[2021-07-22] MEDS ORDERED: CATHFLO ACTIVASE (ALTEPLASE) 2 MG VIAL IV ONE (18:45)
[2021-07-22] MEDS ORDERED: ALBUTEROL SULF 2.5 MG/0.5ML(0.5%) NEB SOLN ONE (21:29)
[2021-07-22] MEDS ORDERED: ALBUTEROL SULF 2.5 MG/0.5ML(0.5%) NEB SOLN NEB ONE (21:30)
[2021-07-22] MEDS ORDERED: IPRATROPIUM BROM 0.5 MG/2.5ML INH SOL ONE (21:30)
[2021-07-22] MEDS ORDERED: IPRATROPIUM BROM 0.5 MG/2.5ML INH SOL NEB ONE (21:30)
[2021-07-22] MEDS: AMIODARONE 450mg/250ml AE 250 ML IV SCH (23:00)
[2021-07-23] MEDS ORDERED: FUROSEMIDE 40 MG/4 ML VIAL ONE (01:06)
[2021-07-23] MEDS ORDERED: methylPREDNISolone SOD SUCC 125 MG/2 ML VL ONE (01:06)
[2021-07-23] MEDS ORDERED: methylPREDNISolone SOD SUCC 125 MG/2 ML VL IV ONE (01:15)
[2021-07-23] MEDS ORDERED: FUROSEMIDE 40 MG/4 ML VIAL IV ONE (01:15)
[2021-07-23] MEDS ORDERED: LORazepam 2MG/ML-1ML VIAL IV PRN ×2 (02:00→19:15)
[2021-07-23 02:10] VITALS: BP 197/108
[2021-07-23] MEDS ORDERED: levETIRAcetam 500 MG/5ML INJ IV ONE (03:10)
[2021-07-23] MEDS ORDERED: hydrALAZINE HCL 20 MG/ML VL IV PRN ×3 (03:45→15:00)
[2021-07-23] MEDS ORDERED: SODIUM BICARBONATE 8.4 % INJ 50ML VIAL IV ONE (04:00)
[2021-07-23 05:50] VITALS: BP 132/72
[2021-07-23] MEDS ORDERED: methylPREDNISolone SOD SUCC 40 MG/ML VL IV ONE (06:00)
[2021-07-23 06:05] LABS: Basophils # (auto) 0 10 ^3/uL (0-0.2); Eosinophils # (auto) 0 10 ^3/uL (0-0.8); Hemoglobin 7.9 g/dL (13.5-17.5); Lymphocytes # (auto) 0.2 10 ^3/uL (0.4-5.4); Monocytes # (auto) 0.3 10 ^3/uL (0-1.3)
[2021-07-23 06:08] LABS: Hematocrit 25.3 % (41.0-53.0); Lymphocytes % (auto) 1.3 % (10.0-50.0); Mean Corpuscular Hemoglobin 24.7 pg (28.0-32.0); Mean Corpuscular Hgb Conc. 31.3 g/dL (32.0-36.0); Mean Corpuscular Volume 78.7 fL (80.0-100.0); Neutrophils # (auto) 14.9 10 ^3/uL (1.6-8.6); Neutrophils % (auto) 96.7 % (37.0-80.0); Red Blood Cells 3.22 10^6/uL (4.5-5.90); Red Cell Distribution Width 19.8 % (11.8-14.3); White Blood Cell 15.4 10^3/uL (4.4-10.8)
[2021-07-23 06:15] LABS: Albumin 2.3 g/dL (3.4-5.0); Calcium 8.5 mg/dL (8.5-10.1); Potassium 4.2 mmol/L (3.5-5.1)
[2021-07-23 06:19] LABS: Total Protein 6.5 g/dL (6.4-8.2)
[2021-07-23] MEDS: LORazepam 2MG/ML-1ML VIAL IV PRN ×2 (06:42→12:35)
[2021-07-23] MEDS ORDERED: InsuLIN REG 1unit/0.01ml Soln (100units/ml) SC ONE (07:30)
[2021-07-23 08:11] VITALS: BP 135/82
[2021-07-23 10:00] VITALS: BP 124/84
[2021-07-23] MEDS: DABIGATRAN 75 MG CAP PO SCH (10:00)
[2021-07-23] MEDS: TAMSULOSIN HYDROCHLORIDE 0.4 MG CAP PO SCH (10:00)
[2021-07-23] MEDS ORDERED: ASPirin 81 mg TAB PO SCH (10:00)
[2021-07-23] MEDS: ATORVASTATIN 20 MG TAB PO SCH (10:00)
[2021-07-23] MEDS ORDERED: ACCU-CHEK COMFORT CURVE STRIP VI SCH (10:00)
[2021-07-23] MEDS: ATENOLOL 25 MG TAB PO SCH (10:00)
[2021-07-23] MEDS: FUROSEMIDE 20 MG/2 ML VIAL IV SCH (10:25)
[2021-07-23] MEDS: cefTRIAXone 1GM/50ML D5W 50 ML IV SCH (10:26)
[2021-07-23] MEDS: AZITHROMYCIN 500MG/ 250ML 250 ML IV SCH (10:55)
[2021-07-23 11:14] VITALS: BP 127/73
[2021-07-23] MEDS ORDERED: DEXTROSE (50%) 50ML SYRG IV PRN (12:15)
[2021-07-23] MEDS: InsuLIN REG 1unit/0.01ml Soln (100units/ml) SC SCH ×2 (12:20→21:54)
[2021-07-23] MEDS ORDERED: ENOXAPARIN SOD 80 MG/0.8ML SYRINGE SC ONE (14:30)
[2021-07-23] MEDS: ACCU-CHEK COMFORT CURVE STRIP VI SCH ×2 (16:50→20:00)
[2021-07-23] MEDS: AMIODARONE 450mg/250ml AE 250 ML IV SCH (17:36)
[2021-07-23] MEDS ORDERED: MORPHINE SULFATE INJECTION 2 MG/ML SYRG ONE (18:56)
[2021-07-23] MEDS ORDERED: LORazepam 2MG/ML-1ML VIAL ONE (20:02)
[2021-07-24] MEDS: ACCU-CHEK COMFORT CURVE STRIP VI SCH ×6 (00:29→20:29)
[2021-07-24] MEDS: InsuLIN REG 1unit/0.01ml Soln (100units/ml) SC SCH ×6 (00:40→20:31)
[2021-07-24] MEDS: AMIODARONE 450mg/250ml AE 250 ML IV SCH ×2 (05:00→20:29)
[2021-07-24 05:27] LABS: Basophils # (auto) 0.3 10 ^3/uL (0-0.2); Basophils % (auto) 1.3 % (0.0-2.0); Eosinophils # (auto) 0 10 ^3/uL (0-0.8); Hematocrit 26.7 % (41.0-53.0); Hemoglobin 8.4 g/dL (13.5-17.5); Lymphocytes # (auto) 0.5 10 ^3/uL (0.4-5.4); Lymphocytes % (auto) 2.3 % (10.0-50.0); Mean Corpuscular Hemoglobin 24.6 pg (28.0-32.0); Mean Corpuscular Hgb Conc. 31.4 g/dL (32.0-36.0); Mean Corpuscular Volume 78.5 fL (80.0-100.0); Monocytes # (auto) 0.7 10 ^3/uL (0-1.3); Monocytes % (auto) 3.5 % (0.0-12.0); Neutrophils # (auto) 19.4 10 ^3/uL (1.6-8.6); Neutrophils % (auto) 92.9 % (37.0-80.0); Red Cell Distribution Width 19.6 % (11.8-14.3); White Blood Cell 20.9 10^3/uL (4.4-10.8)
[2021-07-24 05:44] LABS: Albumin 2.3 g/dL (3.4-5.0); BUN/Creatinine Ratio 36.2; Calcium 8.1 mg/dL (8.5-10.1); Magnesium 2.7 mg/dL (1.6-2.6); Potassium 4.1 mmol/L (3.5-5.1)
[2021-07-24 05:47] LABS: Bilirubin, Total 0.9 mg/dL (0.2-1.0); Total Protein 6.4 g/dL (6.4-8.2)
[2021-07-24 05:52] LABS: INR 1.73 (0.9-1.15); Partial Thromboplastin Time 32.7 sec (23.6-33.0)
[2021-07-24] MEDS: LORazepam 2MG/ML-1ML VIAL IV PRN ×3 (06:00→21:19)
[2021-07-24] MEDS: ATENOLOL 25 MG TAB PO SCH (10:00)
[2021-07-24] MEDS: FUROSEMIDE 20 MG/2 ML VIAL IV SCH (10:00)
[2021-07-24] MEDS: TAMSULOSIN HYDROCHLORIDE 0.4 MG CAP PO SCH (10:00)
[2021-07-24] MEDS: ATORVASTATIN 20 MG TAB PO SCH (10:00)
[2021-07-24] MEDS: cefTRIAXone 1GM/50ML D5W 50 ML IV SCH (10:40)
[2021-07-24] MEDS: ENOXAPARIN SOD 80 MG/0.8ML SYRINGE SC SCH (10:55)
[2021-07-24] MEDS: AZITHROMYCIN 500MG/ 250ML 250 ML IV SCH (11:50)
[2021-07-24] MEDS: ALBUTEROL SULF 2.5 MG/0.5ML(0.5%) NEB SOLN NEB PRN ×3 (15:40→23:03)
[2021-07-24] MEDS: IPRATROPIUM BROM 0.5 MG/2.5ML INH SOL NEB PRN ×3 (15:40→23:04)
[2021-07-25] VITALS (8 sets, daily range): BP systolic 117–184; BP diastolic 78–99
[2021-07-25] MEDS: InsuLIN REG 1unit/0.01ml Soln (100units/ml) SC SCH ×6 (03:02→20:57)
[2021-07-25] MEDS: ACCU-CHEK COMFORT CURVE STRIP VI SCH ×6 (03:03→20:57)
[2021-07-25] MEDS: LORazepam 2MG/ML-1ML VIAL IV PRN ×4 (03:31→18:43)
[2021-07-25] MEDS: IPRATROPIUM BROM 0.5 MG/2.5ML INH SOL NEB PRN ×2 (04:00→06:06)
[2021-07-25] MEDS ORDERED: FUROSEMIDE 20 MG/2 ML VIAL IV ONE (04:00)
[2021-07-25 05:42] LABS: Hematocrit 28.8 % (41.0-53.0); Mean Corpuscular Hemoglobin 24.4 pg (28.0-32.0); Mean Corpuscular Hgb Conc. 31.2 g/dL (32.0-36.0); Mean Corpuscular Volume 78.4 fL (80.0-100.0); Red Blood Cells 3.68 10^6/uL (4.5-5.90); Red Cell Distribution Width 19.5 % (11.8-14.3); White Blood Cell 25.5 10^3/uL (4.4-10.8)
[2021-07-25 05:43] LABS: BUN/Creatinine Ratio 35.3; Calcium 8.4 mg/dL (8.5-10.1); Magnesium 2.7 mg/dL (1.6-2.6); Potassium 4.1 mmol/L (3.5-5.1)
[2021-07-25 05:53] LABS: Band Neutrophils % (manual) 0; Basophils % (manual) 0 (0.0-2.0); Blast Cells 0; Eosinophils % (manual) 0 (0-7); Metamyelocytes % 0; Myelocytes % 0; Promyelocytes % 0; Reactive Lymphocytes 0
[2021-07-25] MEDS: ALBUTEROL SULF 2.5 MG/0.5ML(0.5%) NEB SOLN NEB PRN (06:06)
[2021-07-25 06:42] LABS: Lymphocytes % (manual) 2 (10.0-50.0); Monocytes % (manual) 3 (0-12)
[2021-07-25] MEDS: ATORVASTATIN 20 MG TAB PO SCH (10:00)
[2021-07-25] MEDS: ATENOLOL 25 MG TAB PO SCH (10:00)
[2021-07-25] MEDS: TAMSULOSIN HYDROCHLORIDE 0.4 MG CAP PO SCH (10:00)
[2021-07-25] MEDS: ENOXAPARIN SOD 80 MG/0.8ML SYRINGE SC SCH (10:15)
[2021-07-25] MEDS: cefTRIAXone 1GM/50ML D5W 50 ML IV SCH (10:15)
[2021-07-25] MEDS: FUROSEMIDE 20 MG/2 ML VIAL IV SCH (10:27)
[2021-07-25] MEDS: AMIODARONE 450mg/250ml AE 250 ML IV SCH ×2 (11:00→23:10)
[2021-07-25] MEDS: AZITHROMYCIN 500MG/ 250ML 250 ML IV SCH (11:01)
[2021-07-25] MEDS ORDERED: MORPHINE SULFATE 4 MG/ML SYR/VIAL ONE ×2 (20:35→20:40)
[2021-07-25] MEDS: MORPHINE SULFATE INJECTION 2 MG/ML SYRG IV PRN (20:58)
[2021-07-26] VITALS (17 sets, daily range): BP systolic 110–160; BP diastolic 53–93
[2021-07-26] MEDS: InsuLIN REG 1unit/0.01ml Soln (100units/ml) SC SCH ×6 (00:42→20:00)
[2021-07-26] MEDS: ACCU-CHEK COMFORT CURVE STRIP VI SCH ×6 (00:42→23:59)
[2021-07-26] MEDS: LORazepam 2MG/ML-1ML VIAL IV PRN ×4 (07:51→23:58)
[2021-07-26 08:22] LABS: Basophils # (auto) 0 10 ^3/uL (0-0.2); Eosinophils # (auto) 0 10 ^3/uL (0-0.8); Hemoglobin 8.8 g/dL (13.5-17.5); Lymphocytes # (auto) 0.7 10 ^3/uL (0.4-5.4); Nucleated Red Blood Cells % 0.2 %
[2021-07-26 08:24] LABS: Basophils % (auto) 0.1 % (0.0-2.0); Hematocrit 29.1 % (41.0-53.0); INR 2.11 (0.9-1.15); Lymphocytes % (auto) 3.4 % (10.0-50.0); Mean Corpuscular Hgb Conc. 30.4 g/dL (32.0-36.0); Monocytes # (auto) 0.6 10 ^3/uL (0-1.3); Monocytes % (auto) 2.9 % (0.0-12.0); Neutrophils # (auto) 18.7 10 ^3/uL (1.6-8.6); Neutrophils % (auto) 93.6 % (37.0-80.0); Partial Thromboplastin Time 34.2 sec (23.6-33.0); Red Blood Cells 3.68 10^6/uL (4.5-5.90); Red Cell Distribution Width 20.4 % (11.8-14.3)
[2021-07-26 08:26] LABS: Mean Corpuscular Hemoglobin 24.1 pg (28.0-32.0); Mean Corpuscular Volume 79.2 fL (80.0-100.0)
[2021-07-26 08:28] LABS: Albumin 2.1 g/dL (3.4-5.0); BUN/Creatinine Ratio 37.8; Calcium 8.3 mg/dL (8.5-10.1); Potassium 4.8 mmol/L (3.5-5.1)
[2021-07-26 08:31] LABS: Bilirubin, Total 2.1 mg/dL (0.2-1.0)
[2021-07-26] MEDS: AMIODARONE 450mg/250ml AE 250 ML IV SCH (09:00)
[2021-07-26] MEDS: cefTRIAXone 1GM/50ML D5W 50 ML IV SCH (09:39)
[2021-07-26] MEDS: AZITHROMYCIN 500MG/ 250ML 250 ML IV SCH (09:40)
[2021-07-26] MEDS: FUROSEMIDE 20 MG/2 ML VIAL IV SCH (09:40)
[2021-07-26] MEDS: ENOXAPARIN SOD 80 MG/0.8ML SYRINGE SC SCH (09:41)
[2021-07-26] MEDS: ATORVASTATIN 20 MG TAB PO SCH (10:00)
[2021-07-26] MEDS: ATENOLOL 25 MG TAB PO SCH (10:00)
[2021-07-26] MEDS: TAMSULOSIN HYDROCHLORIDE 0.4 MG CAP PO SCH (10:00)
[2021-07-26] MEDS: IPRATROPIUM BROM 0.5 MG/2.5ML INH SOL NEB PRN ×3 (10:04→16:06)
[2021-07-26] MEDS: ALBUTEROL SULF 2.5 MG/0.5ML(0.5%) NEB SOLN NEB PRN ×3 (10:04→16:06)
[2021-07-26] MEDS ORDERED: LABETALOL HCL 5 MG/ML ML 20ML VIAL IV PRN (10:45)
[2021-07-26] MEDS ORDERED: PANT40TA2 PO (15:54)
[2021-07-26] MEDS ORDERED: INSUINJ2 SC (15:54)
[2021-07-26] MEDS ORDERED: MONT-8 PO (15:54)
[2021-07-26] MEDS ORDERED: INSREG3 SC (15:54)
[2021-07-26] MEDS ORDERED: AMLO-496 PO (15:54)
[2021-07-26] MEDS ORDERED: ALBU0.084 NEB (15:54)
[2021-07-26] MEDS ORDERED: OYST500T48 OR (15:54)
[2021-07-26] MEDS ORDERED: IPR002IS NEB (15:54)
[2021-07-26] MEDS ORDERED: FURO40TA4 PO (15:54)
[2021-07-26] MEDS ORDERED: [UNRECOGNIZED DRUG - CODE] PO (15:54)
[2021-07-26] MEDS: MORPHINE SULFATE INJECTION 2 MG/ML SYRG IV PRN (22:09)
[2021-07-27] VITALS (16 sets, daily range): BP systolic 108–155; BP diastolic 66–92
[2021-07-27] MEDS: MORPHINE SULFATE INJECTION 2 MG/ML SYRG IV PRN ×2 (02:08→18:15)
[2021-07-27] MEDS: InsuLIN REG 1unit/0.01ml Soln (100units/ml) SC SCH ×6 (05:21→20:00)
[2021-07-27] MEDS: ACCU-CHEK COMFORT CURVE STRIP VI SCH ×5 (05:21→20:00)
[2021-07-27] MEDS: IPRATROPIUM BROM 0.5 MG/2.5ML INH SOL NEB PRN ×3 (05:57→21:15)
[2021-07-27] MEDS: ALBUTEROL SULF 2.5 MG/0.5ML(0.5%) NEB SOLN NEB PRN ×3 (05:58→21:15)
[2021-07-27] MEDS: LORazepam 2MG/ML-1ML VIAL IV PRN ×2 (06:38→15:04)
[2021-07-27 08:31] LABS: Basophils # (auto) 0.1 10 ^3/uL (0-0.2); Eosinophils # (auto) 0 10 ^3/uL (0-0.8); Monocytes % (auto) 2.1 % (0.0-12.0)
[2021-07-27 08:32] LABS: Basophils % (auto) 0.2 % (0.0-2.0); Eosinophils % (auto) 0.1 % (0.0-7.0); Hematocrit 26.8 % (41.0-53.0); Hemoglobin 8.1 g/dL (13.5-17.5); Lymphocytes # (auto) 0.6 10 ^3/uL (0.4-5.4); Lymphocytes % (auto) 2.6 % (10.0-50.0); Mean Corpuscular Hgb Conc. 30.4 g/dL (32.0-36.0); Monocytes # (auto) 0.4 10 ^3/uL (0-1.3); Neutrophils # (auto) 19.8 10 ^3/uL (1.6-8.6); Nucleated Red Blood Cells % 0.5 %; Red Blood Cells 3.38 10^6/uL (4.5-5.90); White Blood Cell 20.8 10^3/uL (4.4-10.8)
[2021-07-27 08:46] LABS: Mean Corpuscular Hemoglobin 24.1 pg (28.0-32.0); Mean Corpuscular Volume 79.3 fL (80.0-100.0); Red Cell Distribution Width 19.8 % (11.8-14.3)
[2021-07-27] MEDS: FUROSEMIDE 20 MG/2 ML VIAL IV SCH (09:19)
[2021-07-27] MEDS: ENOXAPARIN SOD 80 MG/0.8ML SYRINGE SC SCH (09:22)
[2021-07-27] MEDS: cefTRIAXone 1GM/50ML D5W 50 ML IV SCH (09:22)
[2021-07-27] MEDS: ATORVASTATIN 20 MG TAB PO SCH (09:23)
[2021-07-27] MEDS: TAMSULOSIN HYDROCHLORIDE 0.4 MG CAP PO SCH (09:23)
[2021-07-27 09:24] LABS: Lactic Acid w/Reflex 2.6 mmol/L (0.4-2.0)
[2021-07-27] MEDS: ATENOLOL 25 MG TAB PO SCH (09:24)
[2021-07-27 10:13] LABS: BUN/Creatinine Ratio 38.6; Bilirubin, Total 2.5 mg/dL (0.2-1.0); Calcium 7.9 mg/dL (8.5-10.1); Total Protein 5.6 g/dL (6.4-8.2)
[2021-07-27] MEDS: D5W/SOD CHL 0.45% 1,000 ML IV SCH (13:08)
[2021-07-27] MEDS: AMIODARONE 450mg/250ml AE 250 ML IV SCH ×2 (15:04→23:00)
[2021-07-28] VITALS (16 sets, daily range): BP systolic 109–148; BP diastolic 51–99
[2021-07-28] MEDS: InsuLIN REG 1unit/0.01ml Soln (100units/ml) SC SCH ×6 (00:30→22:34)
[2021-07-28] MEDS: MORPHINE SULFATE INJECTION 2 MG/ML SYRG IV PRN ×2 (02:05→10:48)
[2021-07-28] MEDS: D5W/SOD CHL 0.45% 1,000 ML IV SCH ×2 (02:55→14:40)
[2021-07-28] MEDS: ACCU-CHEK COMFORT CURVE STRIP VI SCH ×6 (04:26→22:36)
[2021-07-28 05:20] LABS: Eosinophils # (auto) 0 10 ^3/uL (0-0.8); Eosinophils % (auto) 0.1 % (0.0-7.0); Lymphocytes # (auto) 0.6 10 ^3/uL (0.4-5.4); Monocytes # (auto) 0.4 10 ^3/uL (0-1.3)
[2021-07-28 05:26] LABS: Basophils # (auto) 0.1 10 ^3/uL (0-0.2); Basophils % (auto) 0.3 % (0.0-2.0); Hematocrit 28.7 % (41.0-53.0); Lymphocytes % (auto) 2.5 % (10.0-50.0); Mean Corpuscular Hemoglobin 24.9 pg (28.0-32.0); Mean Corpuscular Hgb Conc. 31.3 g/dL (32.0-36.0); Mean Corpuscular Volume 79.6 fL (80.0-100.0); Monocytes % (auto) 1.7 % (0.0-12.0); Neutrophils # (auto) 22.3 10 ^3/uL (1.6-8.6); Neutrophils % (auto) 95.4 % (37.0-80.0); Nucleated Red Blood Cells % 0.4 %; Red Blood Cells 3.61 10^6/uL (4.5-5.90); White Blood Cell 23.3 10^3/uL (4.4-10.8)
[2021-07-28 05:28] LABS: Calcium 7.9 mg/dL (8.5-10.1); Potassium 4.8 mmol/L (3.5-5.1)
[2021-07-28 05:31] LABS: BUN/Creatinine Ratio 41.4
[2021-07-28 05:32] LABS: Red Cell Distribution Width 20.5 % (11.8-14.3)
[2021-07-28 05:33] LABS: Total Protein 5.6 g/dL (6.4-8.2)
[2021-07-28] MEDS: ATORVASTATIN 20 MG TAB PO SCH (10:00)
[2021-07-28] MEDS: cefTRIAXone 1GM/50ML D5W 50 ML IV SCH (10:00)
[2021-07-28] MEDS: FUROSEMIDE 20 MG/2 ML VIAL IV SCH (10:00)
[2021-07-28] MEDS: ATENOLOL 25 MG TAB PO SCH (10:00)
[2021-07-28] MEDS: ENOXAPARIN SOD 80 MG/0.8ML SYRINGE SC SCH (10:00)
[2021-07-28] MEDS: TAMSULOSIN HYDROCHLORIDE 0.4 MG CAP PO SCH (10:00)
[2021-07-28] MEDS: AMIODARONE 450mg/250ml AE 250 ML IV SCH (14:00)
[2021-07-28] MEDS ORDERED: D5W 5% 1,000 ML IV SCH (19:15)
[2021-07-28] MEDS ORDERED: ETOMIDATE (2MG/ML) 20ML VIAL IV ONE (21:00)
[2021-07-28] MEDS ORDERED: SUCCINYLCHOLINE CHLORIDE 20 MG/ML 10ML VIAL IV ONE (22:00)
[2021-07-29] VITALS (9 sets, daily range): BP systolic 107–141; BP diastolic 56–83
[2021-07-29] MEDS: InsuLIN REG 1unit/0.01ml Soln (100units/ml) SC SCH ×2 (00:18→04:00)
[2021-07-29] MEDS: ACCU-CHEK COMFORT CURVE STRIP VI SCH ×2 (00:18→05:00)
[2021-07-29] MEDS: AMIODARONE 450mg/250ml AE 250 ML IV SCH (02:30)
[2021-07-29 05:23] LABS: Hemoglobin 8.4 g/dL (13.5-17.5)
[2021-07-29 05:29] LABS: Hematocrit 28.3 % (41.0-53.0); Mean Corpuscular Hgb Conc. 29.9 g/dL (32.0-36.0); Mean Corpuscular Volume 80.4 fL (80.0-100.0); Red Blood Cells 3.51 10^6/uL (4.5-5.90); White Blood Cell 25.7 10^3/uL (4.4-10.8)
[2021-07-29 05:34] LABS: Magnesium 2.7 mg/dL (1.6-2.6); Potassium 4.6 mmol/L (3.5-5.1)
[2021-07-29 05:38] LABS: Red Cell Distribution Width 20.4 % (11.8-14.3)
[2021-07-29 05:40] LABS: Basophils % (manual) 0 (0.0-2.0); Blast Cells 0; Eosinophils % (manual) 0 (0-7); Metamyelocytes % 0; Myelocytes % 0; Promyelocytes % 0; Reactive Lymphocytes 0
[2021-07-29 07:09] LABS: Band Neutrophils % (manual) 5; Lymphocytes % (manual) 3 (10.0-50.0); Monocytes % (manual) 1 (0-12)
[2021-07-29] MEDS ORDERED: LORazepam 2MG/ML-1ML VIAL IV PRN (08:00)
[2021-07-29] MEDS ORDERED: MORPHINE SULFATE INJECTION 2 MG/ML SYRG IV PRN (08:00)
[2021-07-29] MEDS ORDERED: ENOXAPARIN SOD 80 MG/0.8ML SYRINGE SC SCH (10:00)
== END 2021-07-29 15:04 | DRG 871 ==
LOC: ER 09:17 → EDBD 09:17 → OVERFLOW 15:28 → UNDOADMIN 15:28 → ICU CENTRL 15:28 → OVERFLOW 07-26 05:40 → DOU IN ICU 07-26 05:40 → UNDODISIN 07-29 15:04
PROVIDERS: ADMIT Internal Medicine; ATTEND Internal Medicine
PROC: 5A09357 Assistance with Respiratory Ventilation, Less than 24 Consecutive Hours, Continuous Positive Airway Pressure (ICD-10-PCS; principal; 2021-07-22)
PROC: 02HV33Z Insertion of Infusion Device into Superior Vena Cava, Percutaneous Approach (ICD-10-PCS; 2021-07-24)
PROC: 5A09457 Assistance with Respiratory Ventilation, 24-96 Consecutive Hours, Continuous Positive Airway Pressure (ICD-10-PCS; 2021-07-25)
PROC: 5A09357 Assistance with Respiratory Ventilation, Less than 24 Consecutive Hours, Continuous Positive Airway Pressure (ICD-10-PCS; 2021-07-26)
PROC: 5A09357 Assistance with Respiratory Ventilation, Less than 24 Consecutive Hours, Continuous Positive Airway Pressure (ICD-10-PCS; 2021-07-29)
DX: A41.9 Sepsis, unspecified organism (principal); I63.9 Cerebral infarction, unspecified; E11.10 Type 2 diabetes mellitus with ketoacidosis without coma; I21.A1 Myocardial infarction type 2; I50.23 Acute on chronic systolic (congestive) heart failure; J18.9 Pneumonia, unspecified organism; J96.01 Acute respiratory failure with hypoxia; G93.41 Metabolic encephalopathy; E87.1 Hypo-osmolality and hyponatremia; J98.11 Atelectasis; N17.9 Acute kidney failure, unspecified; E87.0 Hyperosmolality and hypernatremia; Z66 Do not resuscitate; Z51.5 Encounter for palliative care; D63.8 Anemia in other chronic diseases classified elsewhere; G40.909 Epilepsy, unspecified, not intractable, without status epilepticus; E11.65 Type 2 diabetes mellitus with hyperglycemia; I48.91 Unspecified atrial fibrillation; E78.5 Hyperlipidemia, unspecified; I27.20 Pulmonary hypertension, unspecified; N18.30 Chronic kidney disease, stage 3 unspecified; D18.1 Lymphangioma, any site; Z20.822 Contact with and (suspected) exposure to COVID-19; Z86.79 Personal history of other diseases of the circulatory system; Z95.1 Presence of aortocoronary bypass graft
CPT/HCPCS: 36415; 36600; 70450; 70551; 71045; 72125; 76604; 80048; 80053; 80307; 81001; 82010; 82140; 82805; 82962; 83605; 83735; 83880; 84484; 85007; 85025; 85027; 85610; 85730; 87040; 87081; 87426; 93005; 93306; 93886; 94640; 94660; 95819; 96374; 99291; G0378; J0696; J1100; J1815; J7060